=== PATIENT | female | born 1990 | race African-American/Black ===

== ENCOUNTER 2021-08-10 16:38 | Emergency (ER) | payer OTHER ==
[~2021-08-10] VITALS: Ht 175.3 cm; Wt 67.9 kg
[2021-08-10 16:43] VITALS: BP 113/58
== END 2021-08-10 20:20 | disposition left against medical advice (07) ==
LOC: ER 16:38
DX: Z53.21 Procedure and treatment not carried out due to patient leaving prior to being seen by health care provider (principal)

== ENCOUNTER 2021-10-12 17:25 | Emergency (ER) | payer OTHER ==
[~2021-10-12] VITALS: Ht 162.6 cm; Wt 66.0 kg
[2021-10-12] MEDS ORDERED: ACETAMINOPHEN 325MG TABLET PO ONE (20:00)
[2021-10-12] MEDS ORDERED: TOPUD PO (21:53)
[2021-10-12 22:19] VITALS: BP 129/66
== END 2021-10-12 22:20 | disposition home or self-care (01) ==
LOC: ER 17:25
DX: S02.2XXA Fracture of nasal bones, initial encounter for closed fracture (principal); F41.9 Anxiety disorder, unspecified; F32.A Depression, unspecified; Y08.89XA Assault by other specified means, initial encounter; Y93.89 Activity, other specified; Y92.89 Other specified places as the place of occurrence of the external cause
CPT/HCPCS: 70486; 71045; 73620; 81025; 99284